=== PATIENT | female | born 1995 | race African-American/Black ===

== ENCOUNTER 2019-08-25 07:23 | Emergency (ER) | payer SELFPAY ==
[~2019-08-25] VITALS: Ht 152.4 cm; Wt 67.0 kg
[2019-08-25] MEDS: CEFTRIAXONE 2 G PREMIX 50 ML IV ONE (09:14)
[2019-08-25] MEDS: IBUPROFEN 600MG TABLET PO ONE (09:14)
[2019-08-25 10:40] VITALS: BP 125/70
== END 2019-08-25 10:50 | disposition home or self-care (01) ==
LOC: ER 07:23
DX: K08.89 Other specified disorders of teeth and supporting structures (principal); F12.10 Cannabis abuse, uncomplicated
CPT/HCPCS: 81025; 96365; 99283; J0696; Z7610

== ENCOUNTER 2025-03-07 20:10 | Emergency (ER) | payer SELFPAY ==
[~2025-03-07] VITALS: Ht 152.4 cm; Wt 79.6 kg
[2025-03-07 20:14] VITALS: TEMP 36.7; O2SAT 100
[2025-03-07 20:19] VITALS: O2SAT 98
[2025-03-07] MEDS ORDERED: LIDOCAINE 5% PATCH TOP SCH (20:45)
[2025-03-07] MEDS ORDERED: NAPR-1176 MT (20:49)
[2025-03-07] MEDS ORDERED: LIDO-53 TP (20:49)
[2025-03-07] MEDS ORDERED: CYCL5TAB3 MT (20:49)
[2025-03-07] MEDS: CYCLOBENZAPRINE 10MG TABLET PO ONE (21:39)
[2025-03-07] MEDS: LIDOCAINE 5% PATCH TOP SCH (21:40)
[2025-03-07 21:44] VITALS: BP 137/73; PULSE 83; RESP 18
[2025-03-07] MEDS: KETOROLAC 15MG/ML VIAL IM ONE (21:44)
== END 2025-03-07 22:20 | disposition home or self-care (01) ==
LOC: ER 20:10
DX: S13.4XXA Sprain of ligaments of cervical spine, initial encounter (principal); F12.90 Cannabis use, unspecified, uncomplicated; V43.52XA Car driver injured in collision with other type car in traffic accident, initial encounter; Y93.89 Activity, other specified; Y92.89 Other specified places as the place of occurrence of the external cause; Y99.8 Other external cause status
CPT/HCPCS: 99283; 96372; J1885